=== PATIENT | male | born 1995 | race Caucasian/White ===

== ENCOUNTER 2018-10-31 16:42 | Emergency (ER) | payer MEDICAID ==
[~2018-10-31] VITALS: Ht 172.7 cm; Wt 52.2 kg
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
--- NOTE | 2018-10-31 17:13 | NUR ---
DR. CHOWDHURY AT BEDSIDE FOR EVAL.
--- NOTE | 2018-10-31 18:12 | NUR ---
Patient does not wish to proceed with medical care recommended by . Patient given information related to possible complications, up to and including , which could occur as a result of leaving the hospital at this time. Patient verbalizes understanding of risks involved due to leaving against medical advice. Patient has signed AMA form.
[2018-10-31 18:15] VITALS: BP 148/79
== END 2018-10-31 18:18 | disposition left against medical advice (07) ==
LOC: ER 16:43
DX: R07.89 Other chest pain (principal); R10.84 Generalized abdominal pain; R51 Headache; M54.2 Cervicalgia; F17.210 Nicotine dependence, cigarettes, uncomplicated; F41.9 Anxiety disorder, unspecified; Z90.89 Acquired absence of other organs; V49.49XA Driver injured in collision with other motor vehicles in traffic accident, initial encounter; Y93.89 Activity, other specified; Y92.410 Unspecified street and highway as the place of occurrence of the external cause; Y99.8 Other external cause status
CPT/HCPCS: 99283; A4606; A6402; Z7610

== ENCOUNTER 2019-10-28 14:08 | Emergency (ER) | payer MEDICAID ==
[~2019-10-28] VITALS: Ht 167.6 cm; Wt 49.9 kg
[2019-10-28 14:14] VITALS: BP 125/81
== END 2019-10-28 15:19 | disposition home or self-care (01) ==
LOC: ER 14:14
DX: J32.9 Chronic sinusitis, unspecified (principal); F17.200 Nicotine dependence, unspecified, uncomplicated; F41.9 Anxiety disorder, unspecified; Z90.89 Acquired absence of other organs
CPT/HCPCS: 71045-TC

== ENCOUNTER 2022-06-25 20:51 | Emergency (ER) | payer MEDICAID ==
[~2022-06-25] VITALS: Ht 172.7 cm; Wt 54.4 kg
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
--- NOTE | 2022-06-25 21:40 | NUR ---
XRAY DONE AT BEDSIDE
--- NOTE | 2022-06-25 21:45 | NUR ---
EKG DONE AT BEDSIDE
[2022-06-25] MEDS ORDERED: IBUP-1955 PO (22:36)
--- NOTE | 2022-06-25 22:55 | NUR ---
Patient discharged to home in stable condition. Written and verbal after care instructions given. Patient verbalizes understanding of instruction.
[2022-06-25] MEDS ORDERED: KETOROLAC TROMETHAMINE INJ 30 MG/ML VIAL IM ONE (23:00)
[2022-06-25 23:09] VITALS: BP 120/65
== END 2022-06-25 23:10 | disposition home or self-care (01) ==
LOC: ER 20:58
DX: R07.89 Other chest pain (principal); F41.9 Anxiety disorder, unspecified; F32.A Depression, unspecified; F17.200 Nicotine dependence, unspecified, uncomplicated; Z90.89 Acquired absence of other organs
CPT/HCPCS: 71045-TC